=== PATIENT | male | born 1935 | race Caucasian/White ===

== ENCOUNTER 2018-03-21 14:23 | Emergency (ER) | payer SELFPAY ==
[~2018-03-21] VITALS: Ht 180.3 cm; Wt 90.8 kg
[2018-03-21 14:48] VITALS: BP 113/66
[2018-03-21] MEDS ORDERED: PROPARACAINE OPHTH 0.5%, 15ML RIGHTEYE ONE (15:30)
[2018-03-21] MEDS ORDERED: PROPARACAINE OPHTH 0.5%, 15ML ONE (15:56)
[2018-03-21] MEDS ORDERED: FLUORESCEIN/BENOXINATE 5 ML DROPS RIGHTEYE ONE (16:00)
== END 2018-03-21 17:45 | disposition home or self-care (01) ==
LOC: ED 17:39
DX: H54.61 Unqualified visual loss, right eye, normal vision left eye (principal); I10 Essential (primary) hypertension; I25.2 Old myocardial infarction
CPT/HCPCS: 99283